=== PATIENT | male | born 1950 | race Caucasian/White ===

== ENCOUNTER → 2020-11-04 07:23 | Outpatient (CLI) | payer OTHER, SELFPAY ==
--- NOTE | ~2020-11-04 | US_ITS ---
US abdomen limited INDICATION: Unspecified jaundice PROCEDURE: Realtime right upper abdominal ultrasound. COMPARISON: No prior studies for comparison. FINDINGS: The pancreas is normal without focal mass or pancreatic ductal dilation. Liver echotexture is increased, consistent with fatty infiltration. There are gallstones at the gallbladder neck. The re is normal directional flow in the portal vein. The gallbladder is normal without stones, gallbladder wall thickening or pericholecystic fluid. Comm on bile duct measures 4 mm. No sonographic Fortune's sign. IMPRESSION: 1: Cholelithiasis. 2: Fatty infiltration of the liver. Reviewed, dictated and finalized at location A. IOPULMONARY SPECIALIST
== END ==
PROVIDERS: PCP Internal Medicine; Visit Provider Nurse Practitioner
DX: K80.20 Calculus of gallbladder without cholecystitis without obstruction (principal); K76.0 Fatty (change of) liver, not elsewhere classified
CPT/HCPCS: 76705

== ENCOUNTER 2021-06-11 11:47 | Emergency (ER) | payer OTHER, SELFPAY ==
--- NOTE | ~2021-06-11 | XR_ITS ---
XR foot LT min 3V DATE: 06/11/2021 13:03 INDICATION: Pain at third tarsal area radiating to ankle. Lateral foot infection. TECHNIQUE: 4 views COMPARISON: None FINDINGS: Mild plantar calcaneal enthesopathy without associated periostitis or erosive change. Osteoarthritic changes noted at the first metatarsophalangeal joint. Degenerative changes of the ankl e and tarsal joints. No fracture, dislocation, periosteal reaction or bone destruction is detected. IMPRESSION: Plantar calcaneal enthesopathy Osteoarthritic changes, particularly at the first metatarsophalangeal joint Reviewed, dictated and finalized at location B.
[2021-06-11 11:49] VITALS: BP 157/72; PULSE 80; RESP 16; TEMP 36.7; O2SAT 100
--- NOTE | 2021-06-11 12:48 | ED.GENADULT ---
HPI - General Adult General Chief complaint: Extremity Problem,Nontraumatic Stated complaint: left foot/leg swelling Time Seen by Provider: 06/11/21 12:04 Source: patient History of Present Illness HPI narrative: Patient is 70 y/o male complaining of left foot pain starting about 1 week ago. He describes his pain as shooting and rates it as 5/10. His pain radiates up his left leg. He states that weight bearing and walking makes his pain worse. He has some drainage from bottom of his left foot. He denies any trauma. He has no fever or chills. Related Data Allergies Allergy/AdvReac Type Severity Reaction Status Date / Time codeine Allergy Severe Unknown Verified 04/24/21 10:55 Review of Systems Constitutional: Constitutional: Denies chills, Denies fever(s), Denies headache(s) and Denies weakness Eyes: Eyes: Denies blurry vision ENT: Denies headache(s) and Denies neck pain Cardiovascular: Cardiovascular: Denies chest pain and Denies dyspnea Respiratory: Respiratory: Denies cough and Denies dyspnea Gastrointestinal: Gastrointestinal: Denies abdominal pain, Denies diarrhea, Denies nausea and Denies vomiting Genitourinary: Genitourinary: Denies hematuria and Denies dysuria Musculoskeletal: Musculoskeletal: Denies back pain, Denies neck pain and Reports other (left foot and lower leg pain) Integumentary/Breasts: Skin/Breast: Reports swelling (left foot and lower leg) and Reports erythema (left foot and lower leg) Neurologic: Denies headache(s) and Denies weakness PMFSH Past Medical History Medical History Elevated bilirubin Screening for colon cancer Surgical History Surgical History History of carpal tunnel release (~2002) Family History Family History Father Family history of liver disease Patient's father is Mother Cerebrovascular accident Patient's mother is Sibling Patient's brother is in good health Family history of malignant neoplasm of thyroid Patient's sister is Social History Social History Smoking packs per day: 1 Smoking cigarettes per day: 20.0 Years smoked: 10 Smoking pack-years: 10.00 Smoking status: Former smoker Smoking end date: 12/01/10 Alcohol intake: never Exam Const: General: no acute distress and well developed Orientation/consciousness: oriented to person, oriented to place, oriented to time and patient oriented x3 HENMT: Head: normocephalic Ears: external ears normal General nose exam: Normal external nose present Eyes: General: appearance normal, both eyes and all related structures Conjunctivae: conjunctivae normal Neck: Neck: normal visual inspection and full ROM Chest: Chest palpation & inspection: normal inspection of the chest and no tenderness Resp: Effort & Inspection: normal respiratory effort Auscultation: clear to auscultation bilaterally Cardio: Rate: regular rate Rhythm: regular rhythm GI: GI Palp: No abdominal tenderness and Yes Soft to palpation Skin: General skin exam: normal color, turgor normal and erythema (left foot and lower leg) Wounds: wounds noted (wound on plantar surface of left foot with some drainage) Neuro: General: oriented to person, oriented to place, oriented to time and patient oriented x3 Cognition (Neuro): normal cognition Extrem: General: normal to inspection, full ROM and no pedal edema Psych: Appearance: grossly normal Mental Status: mental status grossly normal Affect: normal affect Course Reevaluation(s) Reevaluation #1: I advised patient to be admitted for IV antibiotics, observation and possible surgical consult. However, patient refuses to be admitted. He insists on going home will leave AMA. He is awake, alert and competent to make med
[2021-06-11 13:24] LABS: Basophils Absolute Auto 0.1 K/mm3 (0.0-0.1); Basophils Percent Auto 0.6 % (0.2-1.2); Eosinophils Absolute Auto 0.2 K/mm3 (0-0.3); Eosinophils Percent Auto 1.4 % (0-4.4); Hematocrit 42.2 % (42.0-52.0); Hemoglobin 13.9 g/dL (14.0-18.0); Immature Granulocyte Absolute 0.05 K/mm3 (0.00-0.031); Immature Granulocyte Percent A 0.4 % (0-0.5); Lymphocytes Absolute Auto 1.69 K/mm3 (0.9-3.2); Lymphocytes Percent Auto 14.9 % (18.3-44.2); Mean Corpuscular HGB Conc 32.9 g/dl (32-36); Mean Corpuscular Hemoglobin 28.8 pg (26-34); Mean Corpuscular Volume 87.4 fl (80-100); Mean Platelet Volume 10.4 fl (7.4-10.4); Monocytes Absolute Auto 1.3 K/mm3 (0.1-0.6); Monocytes Percent Auto 11.3 % (2.6-8.5); Neutrophils Absolute Auto 8.1 K/mm3 (1.3-6.7); Neutrophils Percent Auto 71.4 % (45.5-73.1); Platelet Count Result 355 k/mm3 (150-375); Red Blood Count 4.83 M/mm3 (4.6-6.20); Red Cell Distribution Width 12.5 % (11.5-14.5); White Blood Count 11.4 K/mm3 (4.5-10.0)
[2021-06-11 13:42] LABS: Lactic Acid Reflex 1.3 mmol/L (0.7-2.1)
[2021-06-11 13:45] LABS: Anion Gap 10 mmol/L (8-16); Blood Urea Nitrogen 14 mg/dL (9-20); Calcium 10.1 mg/dL (8.4-10.2); Carbon Dioxide 28 mmol/L (22-30); Chloride 99 mmol/L (98-107); Estimated CRCL calculation 112 ml/min; Estimated Glomerular Filt Rate > 60; Glucose 122 mg/dL (75-110); Potassium 4.5 mmol/L (3.4-5.0); Sodium 137 mmol/L (137-145)
[2021-06-11 13:50] LABS: CRP 6.9 mg/dL (<1.0)
[2021-06-11 14:11] VITALS: BP 122/64; PULSE 77; RESP 16; O2SAT 98
[2021-06-11 14:21] LABS: Erythrocyte Sedimentation Rate 36 mm/hr (0-20)
--- NOTE | 2021-06-11 17:47 | PC.NURSE ---
Dr. Burgos at bedside to speak with pt. Admission was recommended to pt; pt declined wanting to be admitted to the hospital. Pt instructed he will have to sign out against medical advice. Risks of signing out AMA discussed with pt by Dr. Burgos. Pt verbalizes understanding.
[2021-06-11 18:38] VITALS: BP 135/75; PULSE 84; O2SAT 100
== END 2021-06-11 18:40 | disposition left against medical advice (07) ==
PROVIDERS: Emergency Provider Emergency Medicine; PCP Internal Medicine
DX: L03.116 Cellulitis of left lower limb (principal); F17.210 Nicotine dependence, cigarettes, uncomplicated
CPT/HCPCS: 36415; 73630; 80048; 83605; 85025; 85652; 86140; 87040; 87070; 87075; 87077; 87147; 87186; 87205; 96365; 96366; 96367; 99284; J2543; J3370

== ENCOUNTER 2021-06-25 08:22 | Outpatient (RCR) | payer OTHER, SELFPAY ==
[2021-06-25 10:24] VITALS: BMI 31.9
== END 2021-09-10 15:19 | disposition home or self-care (01) ==
LOC: ANHWOC 08:22
PROVIDERS: PCP Internal Medicine; Visit Provider Nurse Practitioner
DX: S91.302D Unspecified open wound, left foot, subsequent encounter (principal)
CPT/HCPCS: 99212; G0463

== ENCOUNTER 2021-08-07 11:17 | Outpatient (CLI) | payer OTHER, SELFPAY ==
--- NOTE | ~2021-08-07 | US_ITS ---
EXAMINATION: US venous doppler LE RT DATE: 08/07/2021 11:51 INDICATION: Right lower limb pain. TECHNIQUE: Grayscale ultrasound images without and with compression and Doppler ultrasound images of the right lower extremity veins were obtained. COMPARISON: None. FINDINGS: The visualized portions of right profunda (deep) femoral vein and greater saphenous vein outflow are patent. There is thrombus in right common femoral vein, femoral vein, popliteal vein, peroneal veins, soleus, and posterior tibial veins. IMPRESSION: 1. Deep vein thrombosis in right lower limb. I called this result to Dr. Chester. Reviewed, dictated and finalized at location A. IMPRESSION: 1. Deep vein thrombosis in right lower limb. I called this result to Dr. Chester .
== END 2021-08-07 11:18 | disposition home or self-care (01) ==
PROVIDERS: PCP Internal Medicine; Visit Provider Internal Medicine
DX: I82.451 Acute embolism and thrombosis of right peroneal vein (principal); I82.431 Acute embolism and thrombosis of right popliteal vein; I82.461 Acute embolism and thrombosis of right calf muscular vein; I82.441 Acute embolism and thrombosis of right tibial vein; I82.411 Acute embolism and thrombosis of right femoral vein; M79.89 Other specified soft tissue disorders
CPT/HCPCS: 93971

== ENCOUNTER 2022-11-14 14:41 | Outpatient (CLI) | payer OTHER, SELFPAY ==
--- NOTE | ~2022-11-14 | US_ITS ---
US renal BI 11/14/2022 15:31 Procedure: Realtime transabdominal ultrasound of the kidneys and bladder. Indication: Abdominal pain Comparison: CT dated 08/09/2012 Findings: Renal echotexture is normal bilaterally without hydronephrosis, contour deforming mass or r enal calculus. There are multiple left renal cysts, largest measuring 2.4 cm. The right kidney measur es 11.8 cm and left kidney measures 13.2 cm. Bladder within normal limits. There is fatty infiltrati on of the liver. Impression: 1: Left renal cysts. 2: Hepatic steatosis. Reviewed, dictated and finalized at location B. NEERING ASSISTANT Impression: 1: Left renal cysts. 2: Hepatic steatosis.
== END 2022-11-14 14:42 | disposition home or self-care (01) ==
PROVIDERS: PCP Internal Medicine; Visit Provider Internal Medicine
DX: R10.9 Unspecified abdominal pain (principal); N28.1 Cyst of kidney, acquired; K76.0 Fatty (change of) liver, not elsewhere classified
CPT/HCPCS: 76775

== ENCOUNTER 2025-09-30 14:15 | Outpatient (CLI) | payer OTHER, SELFPAY ==
--- NOTE | ~2025-09-30 | MR_ITS ---
EXAMINATION: MR brain/brain stem wo con DATE: 09/30/2025 15:33 INDICATION: Other amnesia. TECHNIQUE: Magnetic resonance imaging (MRI) of the brain and brainstem was performed without intravenous contrast. COMPARISON: None. FINDINGS: There is no intracranial hemorrhage, acute infarction, or abnormal intracranial mass lesion. The ventricles are normal in size. The orbits are normal. There is mild mucosal thickening in the ethmoid sinuses. The mastoid air cells are normal. IMPRESSION: 1. Normal brain. Reviewed, dictated and finalized at location E. IMPRESSION: 1. Normal brain.
--- OUTSIDE RECORDS SUMMARY | 2025-09-30 14:21 | XMS_ITS | Clinical Summary ---
Author Organization [facility] Address [address] [place] [address] Care Team Providers Care Back Pad Inspector Name Role Phone Clay De La Garza MD Primary Care Provider [phone] Allergies Active Allergy Reactions Criticality Noted Date Comments Morphine Hallucinations Medium 08/03/2021 Medications metFORMIN (GLUCOPHAGE) 1,000 mg tablet Take 1 tablet (1,000 mg total) by mouth 2 (two) times a day 04/24/2021 Active glipiZIDE (GLUCOTROL) 5 mg tablet Take 1 tablet (5 mg total) by mouth daily 05/22/2021 Active lisinopriL (PRINIVIL,ZESTRI L) 10 mg tablet Take 1 tablet (10 mg total) by mouth daily 04/07/2021 Active simvastatin (ZOCOR) 40 mg tablet Take 1 tablet (40 mg total) by mouth daily 04/14/2021 Active Xarelto 20 mg tablet 08/07/2021 Active Rybelsus 7 mg tablet Take 1 tablet (7 mg total) by mouth daily 04/16/2023 Active Contour Next Test Strips strip USE TO TEST BLOOD SUGAR ONCE DAILY 03/29/2023 Active Active Problems Problem Noted Date Diagnosed Date Osteomyelitis of left foot 06/29/2021 Assessment & Plan (07/31/2021 10:26 AM CDT): - Continue Ceftriaxone 2g IV q 24 hrs and metronidazole 500mg q 8 hrs for continued treatment of L third metatarsal/third toe proximal phalanx septic arthritis/OM/abscess, s/p I&D of L foot with removal of some bone, Cx + MSSA (tissue), Strep anginosis and mixed orgs (bone). - Reviewed imaging with pt and discussed why the alteration in his mobility of L third toe, d/t bone removal during surgery. - Advised pt of importance of keeping follow-up with podiatry. - Continue weekly lab monitoring while on IV abx. - Discussed with patient the rational for treatment, culture results, risk of recurrent infection, signs/symptoms of recurrent infection, and to contact ID clinic with any questions or concerns. - Ceftriaxone: Monitoring weekly CBC and CMP for possibility of rash/eosinophilia and pseudocholelithiasis (gallbladder sludging) or hepatitis. Rarely, ceftriaxone can cause drug fever, hepatitis, neutropenia, thrombocytopenia, hemolytic anemia, cholecystitis, or interstitial nephritis. Assessment & Plan (07/04/2021 11:08 AM CDT): Patient presenting with ~3wks of erythema and swelling of left foot and leg with plantar surface wound. Patient denied any trauma. VSS, afebrile. ESR 58, CRP 45. Xray showed diffuse left foot osteopenia, with osseous destruction of the distal 3rd metatarsal shaft and proximal phalanx of the 3rd digit, possible that there is involvement of the adjacent 4th metatarsophalangeal joint. Suspicious for osteomyelitis, less likely subacute fracture. - CT foot W: osteomyelitis, pathologic fractures, septic arthritis, and 18 mm abscess - surgery was consulted, podiatry performed I&D and debridement on 07/01 - rec monitoring for possible further surgery - Bone cx growing strep anginosus, biopsy results from I&D - NGTD - strep ang susc to CTX, erythromycin, levofloxacin, penicillin, vanc; intermediate to clinda - switched from vanc to dapto 8mg/kg on 07/03 - continue empiric dapto/CTX/flagyl for 6 weeks (start date 07/01). R PICC, continue ab with HH - ID final recs? - wound care, podiatry following - 1 of 2 Bcx +Bacillus species, possibly a contaminant. Repeat bcx NGTD Assessment & Plan (07/03/2021 10:03 AM CDT): Patient presenting with ~3wks of erythema and swelling of left foot and leg with plantar surface wound. Patient denied any trauma. VSS, afebrile. ESR 58, CRP 45. Xray showed diffuse left foot osteopenia, with osseous destruction of the distal 3rd metatarsal shaft and proximal phalanx of the 3rd digit, possible that there is involvement of the adjacent 4th metatarsophalangeal joint. Suspicious for osteomyelitis, less likely subacute fracture. - CT foot W: osteomyelitis, pathologic fractures, septic arthritis, and 18 mm abscess - surgery was consulted, podiatry performed I&D and debridement on 07/01 - rec monitoring for possible further surgery - Bone cx growing strep anginosus, biopsy results from I&D - NGTD - strep ang susc to CTX, erythromycin, levofloxacin, penicillin, vanc; intermediate to clinda - continue empiric vanc/CTX/flagyl for 6 weeks (start date 07/01). R PICC, will need to arrange HH - ID will f/u with Ab recs/consider dc vanc pending final biopsy results - wound care, podiatry following - 1 of 2 Bcx +Bacillus species, possibly a contaminant. Repeat bcx NGTD Assessment & Plan (07/02/2021 10:04 AM CDT): Patient presenting with ~3wks of erythema and swelling of left foot and leg with plantar surface wound. Patient denied any trauma. VSS, afebrile. ESR 58, CRP 45. Xray showed diffuse left foot osteopenia, with osseous destruction of the distal 3rd metatarsal shaft and proximal phalanx of the 3rd digit, possible that there is involvement of the adjacent 4th metatarsophalangeal joint. Suspicious for osteomyelitis, less likely subacute fracture. - 1 of 2 Bcx +Bacillus species, possibly a contaminant - Bone cx growing strep anginosus, biopsy results from I&D pending - strep ang susc to CTX, erythromycin, levofloxacin, penicillin, vanc; intermediate to clinda - continue empiric vanc/CTX/flagyl for 6 weeks (start date 07/01) - will c/s ID for Ab recs/consider dc vanc - wound care, ID following- CT foot W: osteomyelitis, pathologic fractures, septic arthritis, and 18 mm abscess - surgery was consulted, podiatry performed I&D and debridement on 07/01 - rec monitoring for possible further surgery Assessment & Plan (06/29/2021 3:55 AM CDT): Patient presenting with ~3wks of erythema and swelling of left foot and leg with plantar surface wound. VSS, afebrile 06/28 ESR 58, CRP pending 06/28 L foot Xray Diffuse left foot osteopenia, with osseous destruction of the distal 3rd metatarsal shaft and proximal phalanx of the 3rd digit. Given the history of a plantar wound and soft tissue swelling, these findings are suspicious for osteomyelitis. It is possible that there is involvement of the adjacent 4th metatarsophalangeal joint but this is not certain. Other, less likely, differential possibilities include a subacute fracture Plan: Blood cultures MRI L foot (may not need, if felt that x-rays are conclusive) NPO for MSK c/s for bone biospy and culture Foot c/s Continue to hold antibiotics while HDS to improve bone biopsy resutls Eventually will need ID c/s for IV antibiotics and OPAT follow-up. 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 - A1C 7.6% - LDSSI, diabetic diet Assessment & Plan (07/03/2021 10:03 AM CDT): - holding home regimen of glipizide 5mg QAM, metformin 1000mg BID - Cont lisinopril 10mg QAM - Cont simvastatin 40mg QAM. - A1C 7.6% - LDSSI, diabetic diet Assessment & Plan (07/02/2021 9:49 AM CDT): - holding home regimen of glipizide 5mg QAM, metformin 1000mg BID - Cont lisinopril 10mg QAM - Cont simvastatin 40mg QAM. - A1C 7.6% - LDSSI, diabetic diet Assessment & Plan (06/29/2021 3:51 AM CDT): Hold home regimen: glipizide 5mg QAM, metformin 1000mg BID. Cont ACEI: lisinopril 10mg QAM. Cont Statin: simvastatin 40mg QAM. A1c LD-SSI Diabetic diet Tobacco use Assessment & Plan (07/04/2021 11:08 AM CDT): Currently smoking 4-5 cigarettes per day. Pt states this admission has motivated him to stop smoking. - Encourage cessation - Offered nicotine patch Assessment & Plan (07/03/2021 10:04 AM CDT): Currently smoking 4-5 cigarettes per day. Pt states this admission has motivated him to stop smoking. - Encourage cessation - Offered nicotine patch Assessment & Plan (07/02/2021 9:49 AM CDT): Currently smoking 4-5 cigarettes per day. - Encourage cessation - Offer nicotine patch Assessment & Plan (06/29/2021 3:49 AM CDT): Currently smoking 4-5 cigarettes per day. Encourage cessation Offer nicotine patch Immunizations Immunization Administration Dates Next Due Pfizer SARS-CoV-2 Monovalent Vaccination (12+ Yrs) PURPLE 02/20/2021,01/30/2021 Surgical History Surgery Date Site/Laterality Comments HERNIA REPAIR SUPERFICIAL BONE BIOPSY 06/29/2021 N/A Medical History Medical History Date Comments Diabetes mellitus Hypertension Family History Medical History Relation Name Comments Diabetes Father Relation Name Status Comments Father Social History Tobacco Use Types Packs/Day Years Used Date Smoking Tobacco: Former Cigarettes 0 07/13/1971 - 07/13/2021 Tobacco Cessation:Counseling Given: Not Answered Social Connection and Isolation Panel Answer Date Recorded In a typical week, how many times do you talk on the phone with family, friends, or neighbors? Three times a week 07/05/2021 How often do you get togethe r with friends or relatives? Three times a week 07/05/2021 How often do you attend chur ch or presybeterian services? Never 07/05/2021 Do you belong to any clubs o r organizations such as restoration groups, unions, fraternal or athletic groups, or school groups? No 07/05/2021 How often do you attend meet ings of the clubs or organizations you belong to? Never 07/05/2021 Are you , , di vorced, , never , or living with a partner? 07/05/2021 AUDIT-C Answer Date Recorded Frequency of Alcohol Consumption Not on file 05/17/2024 Q2: How many drinks containi ng alcohol do you have on a typical day when you are drinking? Patient does not drink Frequency of Binge Drinking Not on file 05/01 Overall Financial Resource Strain (CARDIA) Answe r Date Recorded How hard is it for you to pa y for the very basics like food, housing, medical care, and heating? Not hard at all 07/05/2021 Hunger Vital Sign Answer Date Recorded Within the past 12 months, y ou worried that your food would run out before you got the money to buy more. Never true 07/05/20 21 Within the past 12 months, t he food you bought just didn't last and you didn't have money to get more. Never true 07/05/2021 PRAPARE - Transportation Answer Date Re corded In the past 12 months, has l ack of transportation kept you from medical appointments or from getting medications? No 03/2021 In the past 12 months, has l ack of transportation kept you from meetings, work, or from getting things needed for daily living? No 07/05/2021 Housing Stability Vital Sign Answer Ramiro e Recorded In the last 12 months, was t here a time when you were not able to pay the mortgage or rent on time? No 07/05/2021 In the last 12 months, how many places have you lived? 1 07/05/2021 In the last 12 months, was t here a time when you did not have a steady place to sleep or slept in a custodial (including now)? 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 Gender Identity Not on file Sexual Orientation Not on file Obstetrics History Last Filed Vital Signs Vital Sign Reading Time Taken Comments Blood Pressure 152/73 05/23/2025 11:04 AM CDT Pulse 71 05/23/2025 11:04 AM CDT Temperature 36.3 C (97.3 F) 05/23/2025 11:04 AM CDT Respiratory Rate 18 07/04/2021 8:23 AM CDT Oxygen Saturation 93% 05/23/2025 11:04 AM CDT Inhaled Oxygen Concentration - - Weight 112.5 kg (248 lb) 05/23/2025 11:04 AM CDT Height 190.5 cm (6' 3) 05/23/2025 11:04 AM CDT Body Mass Index 31 05/23/2025 11:04 AM CDT Plan of Treatment Health Maintenance Due Date Last Done Comments Albumin Creatinine Ratio, Urine 1948 Depression Screening 1948 Hepatitis C Screening 1950 eGFR 1948 Dilated Eye Exam 1948 Foot Exam 1948 DTaP/Tdap/Td Vaccine (1 - Tdap) 1959 Hepatitis B Screening 1966 Pneumococcal vaccine 65+ (1 of 2 - PCV) 1967 Zoster Vaccine (1 of 2) 1998 Abdominal Aortic Aneurysm (AAA) Screen 2013 Well Visit 65+ 2013 Hemoglobin A1C 12/30/2021 06/29/2021 Lipid Panel 06/29/2022 06/29/2021 Fall Risk Assessment 07/04/2022 07/04/2021 Covid-19 Vaccine ( season) 2025, 01/30/2021 Influenza Vaccine (#1) 2025 Colon Cancer Screening-Colonoscopy Discontinued 2016, 12/12/2015 Procedures Procedure Name Priority Date/Time Associated Diagnosis Comments HEMOGLOBIN A1C Routine 06/29/2021 2:13 PM CDT LIPID PANEL Routine 06/29/2021 2:13 PM CDT COLONOSCOPY REPORT 01/07/2017 from Last 3 Months or Most Recently Relevant to Health Maintenance Results * (ABNORMAL) Hemoglobin A1c (06/29/2021 2:13 PM CDT) Hgb A1C 7.6(H) 4.0 - 5.6 % [facility] Estimated Average Glucose 171 mg/dL [facility] Comment: The ADA recommends reporting an estimated Average Glucose (eAG) with all Hemoglobin A1c results using the equation derived from a study of 507 normal and diabetic adults. Minority populations were underrepresented and children were not included. (Diabetes Care 2020; 43(S1): S66-S76). The eAG is not equivalent to a fasting glucose. Blood specimen (specimen) 06/29/2021 2:13 PM CDT 06/29/2021 2:46 PM CDT Alicia Acevedo MD LAB BLOOD ORDERABLES Final Result [facility] Department [place] [address] * (ABNORMAL) Lipid panel (06/29/2021 2:13 PM CDT) Cholesterol 113 30 - 199 mg/dL [facility] Comment: Interpretive Data Ages < or = 19 years Acceptable: <170 mg/dL Borderline high: 170-199 mg/dL High: >or= 200 mg/dL Ages > or = 20 years Desirable: <200 mg/dL Borderline high: 200-239 mg/dL High: >or= 240 mg/dL Literature References: 1. Expert Panel on Integrated Guidelines for Cardiovascular Health and Risk Reduction in Children and Adolescents. Pediatrics 2011;128:S213 2. NCEP Expert Panel. Circulation 2004;110:227 Current Interpretive Data was last revised on 2018. Triglycerides 178(H) <=149 mg/dL [facility] Comment: Interpretive Data Ages < or = 9 years Acceptable: <75 mg/dL Borderline high: 75-99 mg/dL High: >or= 100 mg/dL Ages 10 to 20 years Acceptable: <90 mg/dL Borderline high: 90-129 mg/dL High: >or= 130 mg/dL Ages > or = 20 years Desirable: <150 mg/dL Borderline high: 150-199 mg/dL High: 200-499 mg/dL Very high: >or= 499 mg/dL Literature References: 1. Expert Panel on Integrated Guidelines for Cardiovascular Health and Risk Reduction in Children and Adolescents. Pediatrics 2011;128:S213 2. NCEP Expert Panel. Circulation 2004;110:227 Current Interpretive Data was last revised on 2018. HDL 29(L) >=40 mg/dL [facility] Comment: Interpretive Data Ages < or = 19 years Acceptable: >45 mg/dL Borderline low: 40-45 mg/dL Low: <40 mg/dL Ages > or = 20 years Desirable: >or= 60 mg/dL Low: <40 mg/dL Literature References: 1. Expert Panel on Integrated Guidelines for Cardiovascular Health and Risk Reduction in Children and Adolescents. Pediatrics 2011;128:S213 2. NCEP Expert Panel. Circulation 2004;110:227 Current Interpretive Data was last revised on 2018. LDL, calculated 48 <=129 mg/dL [facility] Comment: Interpretive Data Ages < or = 19 years Acceptable: <110 mg/dL Borderline high: 110-129 mg/dL High: >or= 130 mg/dL Ages > or = 20 years Optimal: <100 mg/dL Near optimal: 100-129 mg/dL Borderline high: 130-159 mg/dL High: >160 mg/dL Literature References: 1. Expert Panel on Integrated Guidelines for Cardiovascular Health and Risk Reduction in Children and Adolescents. Pediatrics 2011;128:S213 2. NCEP Expert Panel. Circulation 2004;110:227 Current Interpretive Data was last revised on 2018. Non-HDL Cholesterol 84 mg/dL [facility] Comment: Interpretive Data Ages < or = 19 years Acceptable: <120 mg/dL Borderline high: 120-144 mg/dL High: >145 mg/dL Ages > or = 20 years When triglycerides are >200 mg/dL, Non-HDL cholesterol is a secondary target of therapy with treatment goals that are 30 mg/dL greater than the LDL cholesterol target. Literature References: 1. Expert Panel on Integrated Guidelines for Cardiovascular Health and Risk Reduction in Children and Adolescents. Pediatrics 2011;128:S213 2. NCEP Expert Panel. Circulation 2004;110:227 Current Interpretive Data was last revised on 2018. Chol/HDL ratio 4 [facility] Blood specimen (specimen) 06/29/2021 2:13 PM CDT 06/29/2021 2:54 PM CDT Delfina Cornelius MD LAB BLOOD ORDERABLES Final Result [facility] [place] [address] * COLONOSCOPY REPORT (01/07/2017) Anatomical Region Laterality Modality Other Narrative 01/07/2017 Ordered by an unspecified provider. Historical Provider GI PROCEDURE ORDERABLES F inal Result from Last 3 Months or Most Recently Relevant to Health Maintenance Insurance [facility] Advance Directives For more information, please contact: [phone] * Full Code (Latest Code Status on File) Date Activated Date Inactivated Comments 06/29/2021 6:03 AM 07/04/2021 7:49 PM Care Teams Back Pad Inspector Relationship Specialty Start Date End Date Clay De La Garza MD PCP - General Family Practice 10/29/23
== END 2025-09-30 14:16 | disposition home or self-care (01) ==
PROVIDERS: PCP Family Medicine; Visit Provider Family Medicine
DX: R41.3 Other amnesia (principal)
CPT/HCPCS: 70551